=== PATIENT | male | born 1995 | race Asian ===

== ENCOUNTER 2019-11-09 11:43 | Inpatient (IN) | payer BC, SELFPAY ==
[~2019-11-09 11:43] MED LIST: Dexamethasone 20 MG/5 ML VIAL ONE; EPHEDRINE 25 MG/5 ML SYRINGE ONE; Glycopyrrolate 0.2 MG/ML 5 ML SYRINGE ONE; Lidocaine 1% PF 5 ML VIAL ONE; Ondansetron PF 4 MG/2 ML Vial ONE; PHENYLEPHRINE-NS 100 MCG/ML 10 ML SYRINGE ONE; PROPOFOL 200 MG/20 ML VIAL ONE; Rocuronium Bromide 10 MG/ML (10ML VIAL) ONE
[2019-11-09] MEDS ORDERED: Fentanyl 100 MCG/2 ML VIAL ONE ×3 (12:35→16:04)
[2019-11-09] MEDS ORDERED: Ketorolac Tromethamine 30 MG/ML VIAL ONE (12:36)
--- NOTE | 2019-11-09 12:39 | RAD ---
XR Tib Fib Rt Leg 2 View History: Fall. Obvious deformity. Comparison: None. Findings: Spiral fracture distal tibial diaphysis with a comminuted fracture distal fibular diaphysis with a large segmental component. Limited evaluation of the ankle mortise appears be intact. Two cortex anterior displacement distal tibial fracture. Fracture does not clearly extend to the tibial p shira. Impression: Distal fibular and tibial fractures as described.
[2019-11-09] MEDS ORDERED: Dextrose 50% Abboject 50 ML SYRINGE SLOW IVP PRN ×2 (13:21→18:10)
[2019-11-09] MEDS ORDERED: Ondansetron PF 4 MG/2 ML Vial IVP PRN ×2 (13:21→18:11)
[2019-11-09] MEDS ORDERED: Ondansetron ODT 4 MG TAB PO PRN ×2 (13:21→18:11)
[2019-11-09] MEDS ORDERED: hydrALAZINE 20 MG/ML VIAL SLOW IVP PRN ×2 (13:21→18:10)
[2019-11-09] MEDS ORDERED: Morphine 2 MG/ML SYRINGE SLOW IVP PRN ×2 (13:21→18:11)
[2019-11-09] MEDS ORDERED: Dextrose 5% in Water 1,000 ML IV PRN ×2 (13:21→18:10)
[2019-11-09] MEDS ORDERED: traMADol HCl 50 MG TAB PO PRN ×4 (13:26→18:13)
[2019-11-09] MEDS ORDERED: Sodium Chloride 0.9% 1,000 ML IV SCH ×2 (13:30→18:15)
[2019-11-09] MEDS ORDERED: Ibuprofen 800 MG TAB PO SCH (14:00)
[2019-11-09] MEDS ORDERED: Midazolam HCl 2 mg/2 ml Vial ONE (14:02)
--- NOTE | 2019-11-09 14:15 | HP ---
REQUESTING PHYSICIAN: Dr. Anderson. CONSULTS: Orthopedic Surgery, Jose Alfredo Ward MD ATTENDING: Krystian White MD CHIEF COMPLAINT: Right lower leg pain. HISTORY OF PRESENT ILLNESS: The patient presented to the emergency room after he lost his balance, playing basketball, causing him to fall onto the ground and someone else landed on his right leg. The patient reports hearing an immediate cracking noise. The patient presented with obvious deformity to his distal tibia-fibula area. The patient arrived via ground EMS. Pulses and cap refill intact. The patient denies any loss of consciousness. The patient also denies hitting his head. The patient received 150 mcg of fentanyl for pain by EMS. The patient also received an additional 50 mcg of fentanyl IV and Toradol 30 mg IV in the emergency room for pain. The patient is currently awake, alert, in no distress. The pain is well controlled at this time. The patient last had something to eat or drink at 7 p.m. last night. The patient reports the incident happened around 11:30 this morning. PAST MEDICAL HISTORY: Denies. PAST SURGICAL HISTORY: Denies. ALLERGIES: DENIES. MEDICATIONS: Multivitamin and fish oil. SOCIAL HISTORY: The patient is a college student, denies any alcohol use, denies drug use, denies tobacco use. PAST FAMILY HISTORY: Significant for diabetes. REVIEW OF SYSTEMS: A 10-point review of systems is negative unless otherwise indicated in the above HPI. PHYSICAL EXAMINATION: VITAL SIGNS: Temperature 98.5, blood pressure 155/87, pulse 63, respirations 17, SpO2 of 99% on room air. GENERAL: Young male, well-appearing, no acute distress. HEENT: Head is atraumatic and normocephalic. Pupils are equal bilateral, pharynx exam normal, mucous membranes moist. NECK: Normal range of motion. No cervical spine tenderness. Trachea midline. RESPIRATORY: Equal chest rise and fall. Bilateral breath sounds clear, no wheezing, rales, or rhonchi. CARDIOVASCULAR: Regular rate, regular rhythm, no murmurs. ABDOMEN: Soft, nontender, nondistended. Active bowel sounds. BACK: Normal range of motion. No tenderness to spine. EXTREMITIES: Moves all extremities, distal pulses intact, right lower extremity with splint in place. Cap refill less than 2 seconds. NEUROLOGIC: No focal deficits. GCS 15. LABORATORY DATA: CBC and CMP pending. DIAGNOSTIC DATA: Right tibia-fibula x-ray, impression, distal fibular and tibial fractures. IMPRESSION: 1. Status post fall playing basketball, then stepped on by another player. 2. Right distal tibia-fibula fracture. 3. Acute traumatic pain. PLAN: N.p.o. Dr. Ward plans to take the patient to the OR today for repair of his right tib-fib fracture. Place the patient on a pain regimen. IV normal saline at 100 mL an hour as maintenance fluids while patient is n.p.o. Postop, we will have Physical and Occupational Therapy evaluate and treat postop. Most likely the patient should be able to be discharged home tomorrow if his pain is well controlled and he is able to ambulate without any difficulties. The plan was discussed with the patient and patient's friend who agree. The plan was discussed with the attending who agrees. Job ID: [id number]
[2019-11-09] MEDS ORDERED: Ketorolac Tromethamine 30 MG/ML VIAL IVP PRN (15:51)
[2019-11-09] MEDS ORDERED: Ondansetron HCl/PF 4 MG/2 ML Vial IVP PRN (15:51)
[2019-11-09] MEDS ORDERED: Promethazine HCl 25 MG/ML VIAL IM PRN (15:51)
[2019-11-09] MEDS ORDERED: HYDROmorphone 2 MG/ML VIAL SLOW IVP PRN (15:51)
[2019-11-09] MEDS ORDERED: Promethazine HCl 25 MG/ML VIAL SLOW IVP PRN (15:51)
[2019-11-09] MEDS ORDERED: Meperidine HCl/PF 25 MG/ML VIAL SLOW IVP PRN ×2 (15:51)
[2019-11-09 17:09] LABS: #Lymphocytes 0.9 thou/uL (1.20-3.40); #Monocytes 0.1 thou/uL (0.11-0.59); #Neutrophils 12.9 thou/uL (1.40-6.50); %Basophils 0.2 % (0.0-1.0); %Eosinophils 0.1 % (0.0-10.0); %Lymphocytes 6.3 % (21.0-51.0); %Monocytes 0.9 % (0.0-10.0); %Neutrophils 92.5 % (42.0-75.0); Mean Corpuscular HGB CONC 34.3 g/dL (32.0-36.0); Mean Corpuscular Hemoglobin 28.9 pg (27.0-31.0); Mean Corpuscular Volume 84.2 fL (78.0-98.0); Mean Platelet Volume 7.3 fL (7.4-10.4); Platelet Count 235 thou/uL (130-400); RBC Distribution Width 11.1 % (11.5-14.5); White Blood Cell (WBC) Count 13.9 thou/uL (4.8-10.8)
[2019-11-09 17:22] LABS: ALT (SGPT) 28 U/L (8-55); AST (SGOT) 23 U/L (5-34); Albumin 4.4 g/dL (3.5-5.0); Alkaline Phosphatase 70 U/L (40-110); Anion Gap 13 mmol/L (10-20); BUN (Urea Nitrogen) 18 mg/dL (8.9-20.6); Bilirubin, Total 0.6 mg/dL (0.2-1.2); Calc. Creatinine Clearance 0 mL/min (70-130); Calcium 9.5 mg/dL (7.8-10.44); Carbon Dioxide 26 mmol/L (22-29); Chloride 105 mmol/L (98-107); Estimated GFR-MDRD Greater than 90; Globulin 2.7 g/dL (2.4-3.5); Glucose 137 mg/dL (70-105); Magnesium 1.5 mg/dL (1.6-2.6); Phosphorus 2.5 mg/dL (2.3-4.7); Potassium 3.9 mmol/L (3.5-5.1); Protein, Total 7.1 g/dL (6.0-8.3); Sodium 140 mmol/L (136-145)
[2019-11-09] MEDS ORDERED: Acetaminophen 500 MG TAB PO SCH (18:00)
[2019-11-09] MEDS: Acetaminophen 500 MG TAB PO SCH ×2 (18:20→23:52)
[2019-11-09] MEDS ORDERED: FLU VACC QS2019-20(6MOS UP)/PF 60 MCG/0.5 ML SYRINGE IM ONE (21:00)
[2019-11-09] MEDS ORDERED: Senokot S 8.6-50 MG TAB PO SCH (21:00)
[2019-11-09] MEDS: Ibuprofen 800 MG TAB PO SCH (21:43)
[2019-11-09] MEDS: Senokot S 8.6-50 MG TAB PO SCH (23:00)
--- NOTE | 2019-11-09 23:27 | OP ---
DATE OF PROCEDURE: 11/09/2019 PREOPERATIVE DIAGNOSIS: Closed right distal tib-fib fracture. POSTOPERATIVE DIAGNOSIS: Closed right distal tib-fib fracture. PROCEDURE PERFORMED: Intramedullary nail stabilization, right tibia. ANESTHESIA: General. ESTIMATED BLOOD LOSS: 200 mL. TOURNIQUET TIME: Zero. IMPLANTS: Synthes 10 x 360 mm tibial Ex-nail with 3 Crosslock screws. COMPLICATIONS: None. DRAINS: None. SPECIMENS: None. OUTCOME: Satisfactory. INDICATIONS FOR PROCEDURE: The patient is a 24-year-old gentleman, status post basketball injury, in which, he sustained a right distal tib-fib fracture. After discussion with the patient including risks and benefits, we have decided to proceed with intramedullary nail stabilization. Informed consent has been obtained. I believe all questions have been answered. DESCRIPTION OF PROCEDURE: The patient was brought to the operating room and a time-out performed followed by induction of general anesthesia. Next, the patient was positioned supine on the fracture table with the injured extremity held over a bolster with the knee approaching 80 degrees of flexion and then longitudinal traction applied to the lower leg. The well leg was just held in full extension. Next, a sterile prep and drape was performed of the right lower extremity. A small incision was made overlying the patellar tendon. After skin was sharply incised, dissection was carried down to the underlying peritenon of the tendon. The peritenon was then incised in line with skin incision and then reflected medially with the patellar tendon reflected laterally. At this point, a threaded guidewire was placed at the starting point and introduced into the intramedullary canal of the proximal tibia. The reamer was then passed over this threaded guidewire. Next, a ball-tipped guidewire was passed down the shaft of the tibia across the fracture into the distal tibial metaphysis. Reaming was started at 8.5 mm and continued up to 11 mm with good chatter appreciated at 9.5 mm. Next, a 10 x 360 mm nail was passed over this ball-tipped guidewire, delivering it down into the distal tibial metaphysis. Once fully delivered, the ball-tipped guidewire was removed and then using freehand technique through 2 small stab wounds distally and medially, two distal Crosslock screws were introduced and confirmed with both AP and lateral C-arm imaging. Next, a single proximal Crosslock screw was applied using the jig. At the completion of this, the jig was removed from the nail and final AP and lateral C-arm images were obtained that showed good alignment of fracture and appropriate positioning of hardware. Next, the proximal knee wound was irrigated with bulb syringe, then closed in layers with 0 Vicryl for the peritenon, followed by 2-0 Vicryl subcutaneously and kaleb for the skin. The three small stab wounds for the Crosslock screws were closed with kaleb. Xeroform gauze, Webril, and fiberglass splint were applied to the leg. It should be noted that the fibular fracture reduced very nicely with stabilizing of the tibial fracture and since it was above the tib-fib ligaments, was not felt to be in need of surgical stabilization. Following the application of the splint, the patient was transferred to recovery room in stable condition. There were no complications. He tolerated the procedure well. Job ID: [id number]
--- NOTE | 2019-11-10 03:18 | PRG ---
DATE OF SERVICE: 11/09/2019 SUBJECTIVE: The patient was seen this evening during rounds. He was resting comfortably and asleep with no signs of acute distress. Nursing reported no acute events. He is postoperative day #1, status post IM nail of the right tib-fib. OBJECTIVE: VITAL SIGNS: Temperature 98.2, pulse 72, respirations 16, oxygen saturation 98% on room air, blood pressure 122/78. GENERAL: Well-appearing young male, lying in bed, asleep, in no signs of acute distress. PULMONARY: Equal chest rise and fall. No signs of acute respiratory distress. ASSESSMENT: 1. Status post injury after fall during basketball game. 2. Right distal tib-fib fracture, status post repair. PLAN: Continue current pain regimen and regular diet. Repeat blood work in the morning. We will have Physical and Occupational therapy work with the patient in the morning and do crutch training. If he can move around safely, he will likely be discharged at that time. Job ID: [id number]
[2019-11-10] MEDS: Acetaminophen 500 MG TAB PO SCH ×2 (06:10→11:23)
[2019-11-10] MEDS: Ibuprofen 800 MG TAB PO SCH ×2 (06:10→15:34)
[2019-11-10 07:19] VITALS: BMI 24.9
[2019-11-10] MEDS: Senokot S 8.6-50 MG TAB PO SCH (08:41)
[2019-11-10] MEDS ORDERED: Polyethylene Glycol 3350 17 GM Packet PO SCH ×2 (09:00)
[2019-11-10 15:37] VITALS: BP 118/64; TEMP 97.9
--- NOTE | 2019-11-10 17:57 | DIS ---
DATE OF ADMISSION: 11/09/2019 DATE OF DISCHARGE: 11/10/2019 REQUESTING PHYSICIAN: Dr. Anderson. CONSULT: Orthopedic Surgery, Dr. Ward. PROCEDURES: 1. On 11/09/2019, right tib-fib x-ray, impression, distal fibular and tibial fractures. 2. On 11/09/2019, intramedullary nail stabilization on the right tibia by Dr. Ward. PRIMARY DIAGNOSIS: Basketball injury, closed right distal tib-fib fracture. DISCHARGE MEDICATIONS: 1. Tramadol 50 mg p.o. q.6 hours p.r.n. pain, #30. 2. Tylenol 1000 mg p.o. q.6 hours. 3. Ibuprofen 800 mg q.8 hours p.r.n. pain. 4. Stool softener as needed for constipation. HISTORY OF PRESENT ILLNESS AND HOSPITAL COURSE: This is a 24-year-old gentleman, who presented to the emergency room with right lower extremity pain. The patient was playing basketball and lost his balance causing him to fall onto the ground and another player landed onto his right leg. The patient heard an immediate cracking noise. The patient presented with obvious pain and deformity to his distal tibia-fibula area. The patient's pain was well controlled pre and postop. The patient was able to tolerate a regular diet. The patient was able to ambulate with crutches and participate with physical therapy without any problems. On the day of discharge, the patient's vital signs were stable. The patient's exam was unremarkable including cardiopulmonary and GI exam. The patient was deemed stable for discharge home. DISPOSITION: Stable. DISCHARGE INSTRUCTIONS: 1. Location: Home. 2. Diet: Regular diet as tolerated. 3. Activity: Orthopedic limitations, nonweightbearing right lower extremity. 4. Followup: Follow up with Dr. Ward in 10 to 14 days. No need to follow up with Trauma Services. The [employer] prescription monitoring program was accessed and the patient has no history of narcotic prescriptions. Job ID: [id number]
--- NOTE | 2019-11-11 07:35 | RAD ---
Intraoperative imaging of the right tibia/fibula: 12/08/2019 COMPARISON: None HISTORY: ORIF FINDINGS: 4 intraoperative images demonstrate placement of a tibial intramedullary lucrecia with 2 distal interlocking screws and a proximal interlocking screw. This hardware traverses an obliquely oriented comminuted distal tibial fracture. There is also a comminuted obliquely oriented distal fibu lar fracture. IMPRESSION: ORIF as above.
--- NOTE | 2019-11-11 17:00 | EKG ---
Test Reason : POST OP Blood Pressure : / mmHG Vent. Rate : 078 BPM Atrial Rate : 078 BPM P-R Int : 164 ms QRS Dur : 096 ms QT Int : 386 ms P-R-T Axes : 029 114 030 degrees QTc Int : 440 ms Normal sinus rhythm Right axis deviation Early repolarization Abnormal ECG No previous ECGs available Confirmed by DR. Vargas LANE ([id number]) on 11/11/2019 4:59:36 PM Referred By: NINO Confirmed By:DR. Vargas LANE
== END 2019-11-10 15:55 | disposition home or self-care (01) | DRG 494 ==
LOC: ERS 11:43 → SURG A 16:55
PROVIDERS: ADMIT Orthopaedic Surgery; ATTEND Orthopaedic Surgery
PROC: 0QHG06Z Insertion of Intramedullary Internal Fixation Device into Right Tibia, Open Approach (ICD-10-PCS; principal; 2019-11-09)
DX: S82.391A Other fracture of lower end of right tibia, initial encounter for closed fracture (principal); S82.451A Displaced comminuted fracture of shaft of right fibula, initial encounter for closed fracture; W50.0XXA Accidental hit or strike by another person, initial encounter; Y93.67 Activity, basketball; Y92.310 Basketball court as the place of occurrence of the external cause
CPT/HCPCS: 36415; 76000; 80053; 83735; 84100; 85025; 93005; 93010; C1713; C1769; J0690; J1100; J1885; J2001; J2250; J2270; J2405; J2704; J3010